=== PATIENT | female | born 1975 | race Caucasian/White ===

== ENCOUNTER 2017-08-17 07:07 | Emergency (ER) | payer OTHER ==
[~2017-08-17] VITALS: Ht 165.1 cm; Wt 85.4 kg
[2017-08-17 08:05] LABS: HEMATOCRIT 39.7 % (36.0-46.0); HEMOGLOBIN 13.1 G/DL (11.9-15.5); MCH 28.4 PG (29.0-34.0); MCV 86.1 FL (83-99); PLATELET COUNT 273 K/uL (156-360); RBC DIS.WIDTH-CV 12.3 % (11.8-14.6); RBC DIS.WIDTH-SD 38.7 % (39-53); RED BLOOD COUNT 4.61 M/uL (3.80-5.20); WHITE BLOOD COUNT 9.6 K/uL (4.1-10.2)
[2017-08-17 08:29] LABS: TROP-I INTERPRETATION NEGATIVE; TROPONIN-I < 0.01 ng/mL (0.0-0.30)
[2017-08-17 08:43] LABS: GLUCOSE 96 mg/dL (70-99)
[2017-08-17 08:47] LABS: CREATININE 0.9 mg/dL (0.6-1.3)
[2017-08-17 08:48] LABS: UREA NITROGEN (BUN) 13 mg/dL (9-23)
[2017-08-17 08:50] LABS: GFR ESTIMATE (CALCULATED) > 59 mL/min/
[2017-08-17 08:58] LABS: ALBUMIN 4.4 g/dL (3.2-4.8); CHLORIDE 106 mEq/L (99-109); POTASSIUM 4.2 mEq/L (3.7-5.4); SODIUM 135 mEq/L (136-147)
[2017-08-17 09:01] LABS: TOTAL PROTEIN 7.8 g/dL (6.4-8.3)
[2017-08-17 09:02] LABS: TOTAL BILIRUBIN 0.5 mg/dL (0.0-1.0)
[2017-08-17 09:03] LABS: ALKALINE PHOSPHATASE 92 IU/L (3-129)
[2017-08-17 09:06] LABS: AST (GOT) 125 IU/L (2-34); DIRECT BILIRUBIN 0.3 mg/dL (0.0-0.3)
[2017-08-17 09:07] LABS: ALT (GPT) 104 IU/L (3-49); LIPASE 31 U/L (1.0-51.0)
[2017-08-17 14:04] VITALS: BP 111/72
== END 2017-08-17 14:04 | disposition home or self-care (01) ==
LOC: EME 07:07
DX: K80.20 Calculus of gallbladder without cholecystitis without obstruction (principal); Z87.891 Personal history of nicotine dependence; Z86.718 Personal history of other venous thrombosis and embolism; Z85.9 Personal history of malignant neoplasm, unspecified; Z88.5 Allergy status to narcotic agent
CPT/HCPCS: 71046; 76705; 80048; 80076; 83690; 84484; 85027; 93005; 99281; 99284